=== PATIENT | female | born 1995 | race Caucasian/White ===

== ENCOUNTER 2016-09-26 23:27 | Emergency (ER) | payer BC ==
[2016-09-27] LABS: HEMOGLOBIN 13.9 gm/dl (12.3-15.3); RED BLOOD COUNT 4.53 M/UL (4.00-5.10); WHITE BLOOD COUNT 8.9 K/UL (4.5-11.0)
[2016-09-27 00:20] LABS: BUN/CREATININE RATIO 10 (0-10)
== END 2016-09-27 01:23 | disposition home or self-care (01) ==
LOC: ER1 23:27
PROVIDERS: Family Medicine
DX: R00.2 Palpitations (principal); R07.9 Chest pain, unspecified; R06.02 Shortness of breath; R53.1 Weakness; R61 Generalized hyperhidrosis
CPT/HCPCS: 36415; 80053; 81001; 82550; 82553; 83874; 84484; 84703; 85025; 85379; 87086; 93005; 99285

== ENCOUNTER → 2021-08-03 | Outpatient (CLI) | payer BC ==
[2021-08-03 15:41] LABS: HEMOGLOBIN 14.8 gm/dl (12.3-15.3); RED BLOOD COUNT 4.6 M/UL (4.00-5.10); WHITE BLOOD COUNT 10.1 K/UL (4.5-11.0)
[2021-08-03 16:12] LABS: BUN/CREATININE RATIO 10 (0-10)
== END ==
LOC: LAB 14:41
PROVIDERS: Nurse Practitioner Family
DX: B00.1 Herpesviral vesicular dermatitis (principal)
CPT/HCPCS: 36415; 80053; 80061; 82607; 82746; 83036; 83540; 83550; 84439; 84443; 85025